=== PATIENT | male | born 1960 | race Caucasian/White ===

== ENCOUNTER 2020-10-28 11:54 | Emergency (ER) | payer MEDICARE ==
--- NOTE | 2020-10-28 13:17 | EDM.PDOC ---
ED HPI GENERAL MEDICAL PROBLEM - General Chief Complaint: Neck Problem Stated Complaint: LEFT SIDE FACE/NECK SWOLLEN Time Seen by Provider: 10/28/20 12:30 Source of Information: Reports: Patient History Limitations: Reports: No Limitations - History of Present Illness INITIAL COMMENTS - FREE TEXT/NARRATIVE: patient presented to the ER with a c/o a swelling in the left side of the neck for 4-5 days. Mild TTP. no fever or chills. no sore throat or cough. no ear pain. Reports swelling has improved yesterday but still there. no h/o cancer in the family. Haven't tried anything yet no problem with swallowing and eating Onset: Sudden Duration: Day(s): (5) Location: Reports: Neck Quality: Reports: Pressure Severity: Moderate Improves with: Reports: None Worsens with: Reports: Movement Left Neck Pain Score (Numeric/FACES): 8 - Related Data Allergies Allergy/AdvReac Type Severity Reaction Status Date / Time No Known Allergies Allergy Verified 10/28/20 12:19 Home Meds: Home Meds cloNIDine HCL [Catapres] 0.2 mg PO BID 04/13/18 [History] Amoxicillin 500 mg PO TID #21 tab 10/28/20 [Rx] QUEtiapine [SEROquel] 100 mg PO BEDTIME 10/28/20 [History] Zolpidem [Ambien] 10 mg PO BEDTIME 10/28/20 [History] Past Medical History Cardiovascular History: Reports: Blood Clots/VTE/DVT, Hypertension Respiratory History: Reports: PE Other Respiratory History: Hx pleurisy in past as well as pulmonary embolism Musculoskeletal History: Reports: Arthritis Neurological History: Reports: Neuropathy, Diabetic Psychiatric History: Reports: Depression Endocrine/Metabolic History: Reports: Diabetes, Type II Other Endocrine/Metabolic History: States gone since bariatric surgery Immunologic History: Reports: Other (See Below) Other Immunologic History: hepatitis C but was treated and states tested negative - Infectious Disease History Infectious Disease History: Reports: Hepatitis C - Past Surgical History GI Surgical History: Reports: Bariatric Procedure Musculoskeletal Surgical History: Reports: Arthroscopic Procedure, Carpal Tunnel, Hip Replacement, Knee Replacement, Other (See Below) Other Musculoskeletal Surgeries/Procedures:: hx 2 ulnar nerve release, 2 carpel tunnel, 2 thumb release, hip surgery x 2. Social & Family History - Family History Family Medical History: No Pertinent Family History - Tobacco Use Tobacco Use Status *Q: Never Tobacco User Second Hand Smoke Exposure: No - Caffeine Use Caffeine Use: Reports: None - Recreational Drug Use Recreational Drug Use: No ED ROS GENERAL - Review of Systems Review Of Systems: See Below Constitutional: Reports: No Symptoms HEENT: Reports: Other (neck pain) Respiratory: Reports: No Symptoms Cardiovascular: Reports: No Symptoms GI/Abdominal: Reports: No Symptoms Musculoskeletal: Reports: No Symptoms Skin: Reports: No Symptoms Neurological: Reports: No Symptoms ED EXAM, UPPER BACK/NECK PAIN - Physical Exam Exam: See Below Exam Limited By: No Limitations General Appearance: Alert, WD/WN, No Apparent Distress Eye Exam: Bilateral Eye: EOMI Ears Exam: Normal External Exam, Normal Canal, Normal TMs Nose Exam: Normal Inspection Throat/Mouth Exam: Normal Inspection, Normal Oropharynx Neck Exam: Other (left submandibular swelling and mild TTP) Cardiovascular/Respiratory: Regular Rate, Rhythm, No M/R/G GI/Abdominal: Normal Bowel Sounds, Soft, Non-Tender Neurologic: No Motor/Sensory Deficits, Alert Course - Vital Signs Last Recorded V/S: Last Vital Signs Temp 36.7 C 10/28/20 12:15 Pulse 73 10/28/20 12:15 Resp 16 10/28/20 12:15 BP 156/101 H 10/28/20 12:15 Pulse Ox 95 10/28/20 12:15 - Orders/Labs/Meds Labs: Laboratory Tests 10/28/20 10/28/20 Range/Units 13:21 13:30 WBC 5.6 D (4.0-11.0) K/uL RBC 4.56 (4.50-6.50) M/uL Hgb 13.8 (13.0-18.0) g/dL Hct 39.2 L (40.0-54.0) % MCV 86 (76-96) fL MCH 30.3 (27.0-32.0) pg MCHC 35.2 H (31.0-35.0) g/dL RDW 13.3 (11.0-16.0) % Plt Count 197 (150-400) K/uL MPV 9.8 (6.0-10.0) fL Sodium 140 (136-145) mmol/L Potassium 4.4 (3.5-5.1) mmol/L Chloride 107 (98-107) mmol/L Carbon Dioxide 25.4 (21.0-32.0) mmol/L Anion Gap 12.0 (5.0-15.0) mmol/L BUN 26 (8-26) mg/dL Creatinine 1.32 H (0.70-1.30) mg/dL Est Cr Clr Drug Dosing 71.24 mL/min Estimated GFR (MDRD) 55 L (>60) MLS/MIN BUN/Creatinine Ratio 19.7 (6-25) Glucose 132 H (74-100) mg/dL Calcium 8.8 (8.5-10.1) mg/dL - Re-Assessments/Exams Free Text/Narrative Re-Assessment/Exam: 10/28/20 13:15 labs were ordered will prescribe abx therapy for possible lymphadenitis if no improvement in in 2 weeks - recommend to f/u with your PCP to discuss further diagnostic procedure including biopsy to rule out malignancy Departure - Departure Time of Disposition: 14:09 Disposition: Home, Self-Care 01 Condition: Good Clinical Impression: Lymphadenitis, Submandibular lymphadenitis - Discharge Information *PRESCRIPTION DRUG MONITORING PROGRAM REVIEWED*: Not Applicable *COPY OF PRESCRIPTION DRUG MONITORING REPORT IN PATIENT MICAELA: Not Applicable Prescriptions: Amoxicillin 500 mg PO TID #21 tab Instructions: Lymphadenopathy Referrals: PCP,None [Primary Care Provider] - Forms: ED Department Discharge Additional Instructions: start taking antibiotics as prescribed Tylenol for pain if no improvement in in 2 weeks - recommend to f/u with your PCP to discuss further diagnostic procedure including biopsy to rule out malignancy Return to the ER if any concerns or worsening of symptoms Sepsis Event Note (ED) - Evaluation Sepsis Screening Result: No Definite Risk - Focused Exam Vital Signs: Vital Signs Temp Pulse Resp BP Pulse Ox 10/28/20 12:15 36.7 C 73 16 156/101 H 95 - Problem List & Annotations (1) Lymphadenitis SNOMED Code(s): 66889059 Code(s): I88.9 - NONSPECIFIC LYMPHADENITIS, UNSPECIFIED Status: Acute Priority: Low Current Visit: Yes (2) Submandibular lymphadenitis SNOMED Code(s): 80838313 Code(s): I88.9 - NONSPECIFIC LYMPHADENITIS, UNSPECIFIED Status: Acute Priority: Low Current Visit: Yes - Problem List Review Problem List Initiated/Reviewed/Updated: Yes - Assessment/Plan Plan: start taking antibiotics as prescribed Tylenol for pain if no improvement in in 2 weeks - recommend to f/u with your PCP to discuss further diagnostic procedure including biopsy to rule out malignancy Return to the ER if any concerns or worsening of symptoms
== END 2020-10-28 14:15 | disposition home or self-care (01) ==
LOC: LB.ED 11:54
DX: I88.8 Other nonspecific lymphadenitis (principal); I10 Essential (primary) hypertension; E11.40 Type 2 diabetes mellitus with diabetic neuropathy, unspecified
CPT/HCPCS: 36415; 80048; 85027; 99283

== ENCOUNTER 2021-03-03 11:18 | Day surgery (SDC) | payer MEDICARE ==
[~2021-03-03 11:18] MED LIST: Metoclopramide 10 MG/2 ML SDV IV PRN; Sodium Chloride 0.9% 1,000 ML IV SCH
[2021-03-03] MEDS ORDERED: Propofol 1,000 MG/100 ML SDV ONE (13:45)
--- NOTE | 2021-03-03 14:14 | OR ---
DATE OF OPERATION: 03/03/2021 SURGEON: Zia Nickerson MD PREOPERATIVE DIAGNOSIS: Surveillance colonoscopy and a family history of colorectal cancer. POSTOPERATIVE DIAGNOSIS: Surveillance colonoscopy and a family history of colorectal cancer. PROCEDURE: Colonoscopy. ANESTHESIA: MAC. ESTIMATED BLOOD LOSS: None. COMPLICATIONS: None. INDICATION FOR THE PROCEDURE: The patient is a 61-year-old male with previous history of colon polyps. Last scope was about 4 years ago due to family history, which includes first- degree relatives as well as what sounds like multiple second-degree relatives, was placed on 3-year followup. Otherwise, denies any change in bowel habits. DESCRIPTION OF PROCEDURE: Informed consent was obtained from the patient. The patient was taken to the operating room, placed on the table in the left lateral decubitus position. Monitored anesthesia care was administered. Digital rectal exam was performed, it was normal. Colonoscope was then advanced through the anus, directed toward the cecum. Cecum was reached and identified by appendiceal orifice and ileocecal valve. Colonoscope was then slowly withdrawn. He did have some mild diverticulosis throughout the colon. Otherwise, no polyps, no masses. No areas of ischemia or inflammation. Rectum was also otherwise unremarkable. Colonoscope was then withdrawn. FINDINGS: Mild diverticulosis throughout the colon, otherwise unremarkable. RECOMMENDATIONS: Would recommend repeat surveillance colonoscopy in 5 years due to personal history and family history. DEVIN/JORDY /[id number]
== END 2021-03-03 14:42 | disposition home or self-care (01) ==
LOC: LB.SDS 11:18
PROVIDERS: ATTEND Surgery
DX: Z12.11 Encounter for screening for malignant neoplasm of colon (principal); K57.30 Diverticulosis of large intestine without perforation or abscess without bleeding; E11.9 Type 2 diabetes mellitus without complications; I10 Essential (primary) hypertension; K21.9 Gastro-esophageal reflux disease without esophagitis; Z79.899 Other long term (current) drug therapy; Z80.0 Family history of malignant neoplasm of digestive organs
CPT/HCPCS: 82947; G0105; J2704; J7030

== ENCOUNTER 2021-05-23 12:49 | Emergency (ER) | payer MEDICARE ==
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
--- NOTE | 2021-05-24 06:57 | CR ---
Date of Service: 05/23/21 Clinical Data: pain, swelling LEFT KNEE: No priors. 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 There is a moderate size joint effusion. No acute abnormalities. No lytic or blastic bone lesions. [id number] [facility]
== END 2021-05-23 13:50 | disposition home or self-care (01) ==
LOC: LB.ED 12:49
DX: S83.92XA Sprain of unspecified site of left knee, initial encounter (principal); I10 Essential (primary) hypertension; K21.9 Gastro-esophageal reflux disease without esophagitis; E11.40 Type 2 diabetes mellitus with diabetic neuropathy, unspecified; Z87.891 Personal history of nicotine dependence; Z79.84 Long term (current) use of oral hypoglycemic drugs; Z79.899 Other long term (current) drug therapy
CPT/HCPCS: 73562-LT; 99283

== ENCOUNTER 2021-08-12 14:12 | Emergency (ER) | payer MEDICARE ==
[2021-08-12] MEDS: Sodium Chloride 0.9% 1,000 ML IV ONE ×2 (15:11→16:25)
[2021-08-12 16:04] LABS: HEMOGLOBIN A1C 6.5 % (< 5.7)
== END 2021-08-12 18:40 | disposition home or self-care (01) ==
LOC: LB.ED 14:12
DX: E87.2 Acidosis (principal); E86.1 Hypovolemia; E86.0 Dehydration; I10 Essential (primary) hypertension; E11.40 Type 2 diabetes mellitus with diabetic neuropathy, unspecified; K21.9 Gastro-esophageal reflux disease without esophagitis; Z79.01 Long term (current) use of anticoagulants; Z79.899 Other long term (current) drug therapy; Z20.822 Contact with and (suspected) exposure to COVID-19
CPT/HCPCS: 36415; 80053; 83036; 83605; 85025; 99283; J7030; U0002

== ENCOUNTER 2021-08-15 09:26 | Emergency (ER) | payer MEDICARE ==
[2021-08-15] MEDS ORDERED: Sodium Chloride 0.9% 1,000 ML IV ONE (09:39)
[2021-08-15] MEDS ORDERED: Piperacillin/Tazobactam 3.375 GM in Sodium Chloride 0.9% 100 ML IV SCH (09:45)
[2021-08-15] MEDS: HYDROmorphone 2 MG/ML SDV IM ONE (10:15)
[2021-08-18] MEDS: HYDROmorphone 2 MG/ML SDV ONE (16:45)
== END 2021-08-15 10:20 | disposition other institution (70) ==
LOC: LB.ED 09:26
DX: T81.40XA Infection following a procedure, unspecified, initial encounter (principal); I10 Essential (primary) hypertension; K21.9 Gastro-esophageal reflux disease without esophagitis; E11.40 Type 2 diabetes mellitus with diabetic neuropathy, unspecified; Z79.01 Long term (current) use of anticoagulants; Z79.84 Long term (current) use of oral hypoglycemic drugs
CPT/HCPCS: 36415; 71045; 80053; 83605; 84484; 85025; 96372; 99284; 99284-25; J1170

== ENCOUNTER 2021-12-26 18:21 | Emergency (ER) | payer MEDICARE | END 2021-12-26 19:56 | disposition home or self-care (01) | LOC: LB.ED 18:21 | DX: S01.81XA Laceration without foreign body of other part of head, initial encounter (principal); I10 Essential (primary) hypertension; E11.9 Type 2 diabetes mellitus without complications; K21.9 Gastro-esophageal reflux disease without esophagitis; Z79.01 Long term (current) use of anticoagulants; W18.09XA Striking against other object with subsequent fall, initial encounter | CPT/HCPCS: 70450; 99283 ==

== ENCOUNTER 2022-04-17 15:16 | Emergency (ER) | payer MEDICARE ==
[2022-04-17] MEDS ORDERED: Sodium Chloride 0.9% 10 ML Syringe FLUSH PRN (15:44)
[2022-04-17] MEDS: Sodium Chloride 0.9% 1,000 ML IV SCH ×2 (16:39→17:40)
[2022-04-17] MEDS ORDERED: Sodium Chloride 0.9% 50 ML SDV FLUSH ONE (18:20)
[2022-04-17] MEDS ORDERED: Iopamidol 612 MG/ML 100 ML Bottle IV SCH (18:45)
== END 2022-04-17 20:25 | disposition home or self-care (01) ==
LOC: LB.ED 15:16
DX: U07.1 COVID-19 (principal); E86.0 Dehydration; I10 Essential (primary) hypertension; K21.9 Gastro-esophageal reflux disease without esophagitis; E11.40 Type 2 diabetes mellitus with diabetic neuropathy, unspecified; Z79.01 Long term (current) use of anticoagulants; Z79.84 Long term (current) use of oral hypoglycemic drugs; Z79.899 Other long term (current) drug therapy
CPT/HCPCS: 36415; 71045; 71260; 80048; 84484; 85027; 93005; 96360; 99284-25; J7030; Q9967; U0002